=== PATIENT | male | born 1995 | race Caucasian/White ===

== ENCOUNTER 2020-01-05 21:48 | Emergency (ER) | payer MEDICAID ==
[~2020-01-05] VITALS: Ht 175.3 cm; Wt 89.0 kg
[2020-01-05] MEDS ORDERED: IBUPROFEN 600MG TABLET PO ONE (22:30)
[2020-01-05] MEDS ORDERED: LIDOCAINE HCL/PF 1% 10 MG/ML 5ML VIAL IJ ONE (22:30)
[2020-01-05] MEDS ORDERED: TETANUS, DIPHTHERIA, PERTUSSIS VAC/PF 0.5ML (>7YR OLD) IM ONE (22:30)
[2020-01-05] MEDS ORDERED: BACITRACIN ZINC OINT UDPKT TOP ONE (22:30)
[2020-01-05 22:58] VITALS: BP 134/85
== END 2020-01-05 22:59 | disposition home or self-care (01) ==
LOC: ER 21:48
DX: S61.412A Laceration without foreign body of left hand, initial encounter (principal); W25.XXXA Contact with sharp glass, initial encounter; Y93.89 Activity, other specified; Y92.89 Other specified places as the place of occurrence of the external cause; Z23 Encounter for immunization
CPT/HCPCS: 12001; 90471; 90715; 99283; J3490

== ENCOUNTER 2020-01-08 15:34 | Emergency (ER) | payer MEDICAID ==
[~2020-01-08] VITALS: Ht 167.6 cm; Wt 56.0 kg
[2020-01-08 15:37] VITALS: BP 115/78
== END 2020-01-08 16:30 | disposition home or self-care (01) ==
LOC: ER 15:34
DX: Z48.00 Encounter for change or removal of nonsurgical wound dressing (principal)
CPT/HCPCS: 99281

== ENCOUNTER 2020-01-16 11:01 | Emergency (ER) | payer MEDICAID ==
[~2020-01-16] VITALS: Ht 175.3 cm; Wt 90.0 kg
[2020-01-16 11:08] VITALS: BP 132/78
== END 2020-01-16 12:10 | disposition home or self-care (01) ==
LOC: ER 11:30
DX: S61.412D Laceration without foreign body of left hand, subsequent encounter (principal); X58.XXXD Exposure to other specified factors, subsequent encounter
CPT/HCPCS: 99281

== ENCOUNTER 2021-10-05 17:29 | Emergency (ER) | payer MEDICAID ==
[~2021-10-05] VITALS: Ht 172.7 cm; Wt 92.0 kg
[2021-10-05] MEDS ORDERED: LIDOCAINE HCL/PF 1% 10 MG/ML 5ML VIAL INFIL ONE (19:00)
[2021-10-05] MEDS ORDERED: BACITRACIN ZINC OINT UDPKT TOP ONE (19:00)
[2021-10-05] MEDS ORDERED: IBUPROFEN 400MG TABLET PO ONE (19:00)
[2021-10-05] MEDS ORDERED: TETANUS, DIPHTHERIA, PERTUSSIS VAC/PF 0.5ML (>10YR OLD) IM ONE (19:00)
[2021-10-05] MEDS ORDERED: LIDOCAINE HCL 1% 10 MG/ML 10ML VIAL IJ NR (19:05)
[2021-10-05] MEDS ORDERED: IBUP-2028 MT (19:56)
[2021-10-05 20:17] VITALS: BP 138/82
== END 2021-10-05 20:19 | disposition home or self-care (01) ==
LOC: ER 17:32
DX: S61.214A Laceration without foreign body of right ring finger without damage to nail, initial encounter (principal); W19.XXXA Unspecified fall, initial encounter; Y93.89 Activity, other specified; Y92.89 Other specified places as the place of occurrence of the external cause; Y99.8 Other external cause status
CPT/HCPCS: 12001; 73140; 99283; J3490; Z7610

== ENCOUNTER 2021-10-12 15:07 | Emergency (ER) | payer MEDICAID, OTHER ==
[~2021-10-12] VITALS: Ht 172.7 cm; Wt 91.0 kg
[~2021-10-12 15:07] MED LIST: IBUP-2028 MT
[2021-10-12 15:22] VITALS: BP 141/83
== END 2021-10-12 15:57 | disposition home or self-care (01) ==
LOC: ER 15:07
DX: S61.218D Laceration without foreign body of other finger without damage to nail, subsequent encounter (principal); Z48.00 Encounter for change or removal of nonsurgical wound dressing; X58.XXXD Exposure to other specified factors, subsequent encounter
CPT/HCPCS: 99281; Z7610

== ENCOUNTER 2025-04-03 11:15 | Emergency (ER) | payer MEDICAID ==
[~2025-04-03] VITALS: Ht 167.6 cm; Wt 100.0 kg
[2025-04-03 11:30] VITALS: O2SAT 100
[2025-04-03] MEDS ORDERED: AMOX1TAB16 MT (11:56)
[2025-04-03 12:43] VITALS: BP 131/90; PULSE 91; RESP 18; TEMP 36.4; O2SAT 100
== END 2025-04-03 12:45 | disposition home or self-care (01) ==
LOC: ER 11:15
DX: S21.151A Open bite of right front wall of thorax without penetration into thoracic cavity, initial encounter (principal); S41.152A Open bite of left upper arm, initial encounter; Y04.1XXA Assault by human bite, initial encounter; Y93.89 Activity, other specified; Y92.89 Other specified places as the place of occurrence of the external cause; Y99.8 Other external cause status
CPT/HCPCS: 99283